=== PATIENT | male | born 1980 | race Caucasian/White ===

== ENCOUNTER 2016-04-11 21:00 | Emergency (ER) | payer OTHER ==
--- NOTE | ~2016-04-11 | CR181 ---
[facility] A Service of [facility] / [facility] RADIOLOGY TEXT RESULTS PATIENT: CLEMENTE JACOBS LOCATION: CFTX : 82 UNIT #: [id number] AGE: [address]: Alessia Estevez APRN SEX: M ORDER DR: [id number] [place], [place] [address] [id number] MR#: [id number] Acc #: [id number] NAME: CLEMENTE JACOBS : 1980 SEX: M STUDY DATE/TIME: 04/11/2016 19:48 UNIT: [facility] ROOM: STUDY DESCRIPTION: CR Lumbar Spine 2 or 3 Views Attending Physician: Er Doctor Juan Ordering Physician: Alessia Estevez A.P.R.N. Primary Care Physician: Primary Care Physician No MEDICAL IMAGING REPORT This report is preliminary unless electronic signature is present EXAM Lumbar series, 04/11/2016 INDICATION 36-year-old male with history of pain symptoms that began today after lifting and twisting injury. Lower back pain. TECHNIQUE 3 views of the lumbar spine. No comparisons. FINDINGS Vertebral body heights and alignment are preserved. There is mild degenerative disc disease at L5-S1 and L4-5. Small vestigial ribs noted at the T12 level. There also appears to be a partially lumbarized S1 segment. IMPRESSION Degenerative changes in the lower lumbar spine to a mild degree but no acute fracture or malalignment. Dictated by... Yuan Frankel M.D. THIS IS AN ELECTRONICALLY VERIFIED REPORT Yuan Frankel M.D. at 04/12/2016 10:19 AM HELIO/preston TD: 04/12/2016 02:26 JOB #: [id number] MEDICAL IMAGING REPORT [facility] A Service [facility] RADIOLOGY TEXT RESULTS PATIENT: CLEMENTE JACOBS LOCATION: CFTX : 82 UNIT #: [id number] AGE: [address]: Alessia Estevez APRN SEX: M ORDER DR: COPY
== END 2016-04-11 21:01 | disposition home or self-care (01) ==
LOC: CFTX 21:00
DX: S39.012A Strain of muscle, fascia and tendon of lower back, initial encounter (principal); X58.XXXA Exposure to other specified factors, initial encounter
CPT/HCPCS: 72100; 96372; 99283; J1885